=== PATIENT | female | born 1965 | race Caucasian/White ===

== ENCOUNTER 2023-04-13 17:42 | Emergency (ER) | payer MEDICARE, MEDICAID, SELFPAY ==
[2023-04-13 18:39] VITALS: BP 125/64; PULSE 62; RESP 18; TEMP 36.3; O2SAT 99; BMI 26.6
--- NOTE | 2023-04-13 18:39 | ED_ITS ---
HPI - General Adult General Chief complaint: Dizziness Stated complaint: Dizziness/Nauseas Related Data Allergies Allergy/AdvReac Type Severity Reaction Status Date / Time No Known Allergies Allergy Unverified 04/11/20 15:10 [No Known Allergies*] FORMERLY [facility], [facility] Social History Social History Advance Directives: No Advance Directives Information Provided: No Physical Exam ED Vital Signs: BMI result Body Mass Index 26.6 Course Course Course Narrative: This is an RME: Additional HPI, ROS, PE not included below will be deferred to primary provider. This is a 57-year-old female, with a hx of right lower lobectomy (noncancerous), presenting to the emergency department for evaluation of dizziness with bending over. Two nights ago she was rolling around in bed and felt dizziness. Dizziness over the last 2 days she has been dizzy with nausea. Plan: Labs, EKG Reevaluation(s) Reevaluation #1: Patient eloped prior to being seen by primary provider. Medical Decision Making Lab Data 04/13/23 19:20 04/13/23 19:20 Labs: Lab Results 04/13/23 Range/Units 19:20 WBC 9.0 (4.8-10.8) X10*3/uL RBC 4.22 (4.20-5.50) X10*6/uL Hgb 13.4 (12.0-16.0) g/dl Hct 39.3 (37.0-47.0) % MCV 93.1 (80.0-98.0) fL MCH 31.8 (27.0-33.0) pg MCHC 34.1 (31.0-35.0) g/dl RDW 11.8 (11.0-16.0) % Plt Count 241 (160-400) X10*3/uL MPV 10.1 (9.4-12.3) fL Immature Gran % (Auto) 0.9 H (0.0-0.4) % Neut % (Auto) 56.0 (45-73) % Lymph % (Auto) 31.7 (20-40) % [place] % (Auto) 8.9 (2-11) % Eos % (Auto) 1.9 (0-4) % Baso % (Auto) 0.6 (0-2) % Lymph # (Auto) 2.8 (1.2-4.9) X10*3/uL [place] # (Auto) 0.8 (0.1-1.2) X10*3/uL Eos # (Auto) 0.2 (0.0-0.4) X10*3/uL Baso # (Auto) 0.1 (0.0-0.2) X10*3/uL Abs Immat Gran (auto) 0.08 H (0.00-0.03) X10*3/uL Absolute Neuts (auto) 5.0 (2.0-8.3) x10*3/uL Absolute Nucleated RBC 0.000 (0.0-0.012) X10*3/uL Nucleated RBC % (auto) 0.0 (0.0-0.2) /100WBC Sodium 141 (135-145) mmol/L Potassium 4.5 (3.3-5.1) mmol/L Chloride 105 (96-108) mmol/L Carbon Dioxide 27 (22-29) mmol/L Anion Gap 14 (12-20) BUN 17 H (9-16) mg/dL Creatinine 0.77 (0.5-1.4) mg/dL Estim Creat Clear Calc 75.6 Estimated GFR > 60 Random Glucose 89 (60-115) mg/dL Calcium 9.6 (8.4-10.2) mg/dL Total Bilirubin 0.5 (0.0-1.0) mg/dL Direct Bilirubin 0.2 (0.0-0.5) mg/dL AST 24 (5-31) U/L ALT 17 (0-31) U/L Alkaline Phosphatase 63 (39-117) U/L Troponin I High Sens < 2.7 (<3.5-17.0) ng/L Total Protein 7.2 (6.5-8.0) g/dL Albumin 4.4 (3.5-5.0) g/dL Discharge Plan Discharge Clinical Impression: Dizziness Patient Disposition: Elopement Discharge Date/Time: 04/14/23 00:31
--- NOTE | 2023-04-13 18:41 | ECG_ITS ---
Test Reason : dizziness Blood Pressure : / mmHG Vent. Rate : 060 BPM Atrial Rate : 060 BPM P-R Int : 184 ms QRS Dur : 086 ms QT Int : 424 ms P-R-T Axes : 051 007 018 degrees QTc Int : 424 ms Normal sinus rhythm Low voltage QRS Borderline ECG When compared with ECG of 10-AUG-2017 08:56, No significant change was found Referred By: Fang Diaz Electronically Signed By:HENNA ELAM
[2023-04-13 19:24] LABS: MANUAL DIFF FLAG NO
[2023-04-13 19:39] LABS: Basophils Absolute Auto 0.1 X10*3/uL (0.0-0.2); Basophils Percent Auto 0.6 % (0-2); Eosinophils Absolute Auto 0.2 X10*3/uL (0.0-0.4); Eosinophils Percent Auto 1.9 % (0-4); Hematocrit 39.3 % (37.0-47.0); Hemoglobin 13.4 g/dl (12.0-16.0); Imm Gran Abs Auto 0.08 X10*3/uL (0.00-0.03); Imm Gran Pct Auto 0.9 % (0.0-0.4); Lymphocytes Absolute Auto 2.8 X10*3/uL (1.2-4.9); Lymphocytes Percent Auto 31.7 % (20-40); Mean Corpuscular HGB Conc 34.1 g/dl (31.0-35.0); Mean Corpuscular Hemoglobin 31.8 pg (27.0-33.0); Mean Corpuscular Volume 93.1 fL (80.0-98.0); Mean Platelet Volume 10.1 fL (9.4-12.3); Monocytes Absolute Auto 0.8 X10*3/uL (0.1-1.2); Monocytes Percent Auto 8.9 % (2-11); Platelet Count 241 X10*3/uL (160-400); Red Blood Count 4.22 X10*6/uL (4.20-5.50); Red Cell Distribution Width 11.8 % (11.0-16.0)
[2023-04-13 19:43] LABS: Alanine Aminotransferase 17 U/L (0-31); Albumin Level 4.4 g/dL (3.5-5.0); Alkaline Phosphatase 63 U/L (39-117); Anion Gap 14 (12-20); Aspartate Amino Transferase 24 U/L (5-31); Bilirubin Direct 0.2 mg/dL (0.0-0.5); Bilirubin Total 0.5 mg/dL (0.0-1.0); Blood Urea Nitrogen 17 mg/dL (9-16); Calcium 9.6 mg/dL (8.4-10.2); Carbon Dioxide 27 mmol/L (22-29); Chloride 105 mmol/L (96-108); Creatinine Clr Calc Pharmacy 75.6; Estimated Glomerular Filt Rate > 60; Glucose Random 89 mg/dL (60-115); Potassium 4.5 mmol/L (3.3-5.1); Sodium 141 mmol/L (135-145); Total Protein 7.2 g/dL (6.5-8.0)
[2023-04-13 19:50] LABS: Troponin-I High Sensitivity < 2.7 ng/L (<3.5-17.0)
== END 2023-04-14 00:31 | disposition left against medical advice (07) ==
LOC: HO.ED 04-14 00:15
PROVIDERS: Physician Assistant Medical; Emergency Provider Emergency Medicine; PCP Internal Medicine
DX: R42 Dizziness and giddiness (principal); R94.31 Abnormal electrocardiogram [ECG] [EKG]; R11.2 Nausea with vomiting, unspecified; Z79.899 Other long term (current) drug therapy
CPT/HCPCS: 36415; 80048; 80076; 84484; 85025; 93005; 99283

== ENCOUNTER 2025-02-04 10:42 | Emergency (ER) | payer MEDICARE, MEDICAID, SELFPAY ==
--- NOTE | ~2025-02-04 | CT_ITS ---
CLINICAL HISTORY: pleuritic CP, SOB CT angiography chest with contrast. 3D Postprocessing. Comparison: CT - CT ANGIO CHEST PE PROTOCOL - 02/04/25 13:30 EDT Findings: The heart is normal size. RV/LV ratio is normal. Unremarkable thoracic aorta and great vessels. No aneurysm. No pulmonary artery filling defects. The visualized thyroid and mediastinum are unremarkable. No evidence of pneumonia or edema. Scarring within the superior segment right lower lobe. Subpleural nodule within the right middle lobe anteriorly measuring 5 mm (image 89). Scarring within the right lung base posteriorly. Spiculated 6 mm nodule within the left lower lobe anteriorly (image 86). The visualized upper abdomen is unremarkable. The bones are intact. IMPRESSION: 1. No pulmonary emboli. 2. Bilateral pulmonary nodules. Optional follow-up chest CT at 6-12 months, then at 18-24 months could be performed for further assessment. This document has been electronically signed by: Axel Garnica MD on 02/04/2025 14:41:12
--- NOTE | ~2025-02-04 | CT_ITS ---
CLINICAL HISTORY: abd pain, diffusely tender, hx of IBS CT abdomen and pelvis with contrast Comparison: None provided Findings: The lung bases are clear. The gallbladder and solid organs are within normal limits. No renal stones. No bowel obstruction, pneumoperitoneum, or pneumatosis. Pelvic contents unremarkable. Appendix is not seen. No acute fracture. IMPRESSION: No acute findings. This document has been electronically signed by: Axel Garnica MD on 02/04/2025 14:39:02
[2025-02-04 10:49] VITALS: BP 118/69; PULSE 64; RESP 20; TEMP 36.2; O2SAT 99; BMI 27.4
[2025-02-04 11:56] LABS: MANUAL DIFF FLAG NO
[2025-02-04 11:57] LABS: Hematocrit 40.4 % (37.0-47.0); Hemoglobin 14.3 g/dl (12.0-16.0); Imm Gran Abs Auto 0.02 X10*3/uL (0.00-0.03); Imm Gran Pct Auto 0.2 % (0.0-0.4); Lymphocytes Absolute Auto 2.2 X10*3/uL (1.2-4.9); Mean Corpuscular HGB Conc 35.4 g/dl (31.0-35.0); Mean Corpuscular Hemoglobin 31.7 pg (27.0-33.0); Mean Corpuscular Volume 89.6 fL (80.0-98.0); NRBC Abs Auto 0.000 X10*3/uL (0.0-0.012); NRBC Pct Auto 0.0 /100WBC (0.0-0.2); Platelet Count 224 X10*3/uL (160-400); Red Blood Count 4.51 X10*6/uL (4.20-5.50); White Blood Count 8.4 X10*3/uL (4.8-10.8)
[2025-02-04 12:01] LABS: Appearance Urine Clear; Glucose Urine UA Negative (Negative); PH 5.5 (5.0-9.0); Specific Gravity - Urine 1.025 (1.005-1.025)
--- NOTE | 2025-02-04 12:08 | ED_ITS ---
HPI - General Adult General Chief complaint: Abdominal Pain Stated complaint: abd pain Time Seen by Provider: 02/04/25 12:34 Source: patient and RN notes reviewed Mode of arrival: ambulatory Limitations: no limitations History of Present Illness ED Provider: Fang Garcia PA-C HPI narrative: This is a 59-year-old female, with a hx of Linezess for IBS-C, treated hepatitis-C, and partial right lower lobectomy due to concerns for cancerous lesion however this was found to be benign, who presents emergency department for evaluation of abdominal pain. Patient reports that over the last 6 months she has had worsening abdominal pain, states that it is worsening over the last several days. She also admits that she has had a rate submitted pleuritic pain. She states that she treat following up with her GI specialist however given that she has been seen in over 2 years, they need to have a new patient appointment in her GI specialist also left. She states that she has had no fevers, chills, chest pain. She does report nausea when she takes Linzess with docusate. She states that she will have episodes of diarrhea where she would lose 5-7lbs in a night. She reports that this pleuritic right sided rib pain does take her breath away. She denies any recent travel, surgery, or hospitalizations. No history of blood clots. She states she has a history of IVDA, states that has been many years. No other complaints or concerns at this time. MD complaint: Abdominal Pain Onset (ago): day(s) Relieving factors: none Exacerbating factors: none Associated symptoms: denies other symptoms Treatments prior to arrival: none Related Data Allergies Allergy/AdvReac Type Severity Reaction Status Date / Time No Known Allergies (No Known Allergy Verified 02/04/25 10:52 Allergies*) Review of Systems 2 Review of Systems: Yes all other systems are reviewed and are negative Constitutional: Constitutional: Reports as per HPI Physical Exam ED Vital Signs: Vital Signs - 24 hr 02/04/25 10:49 02/04/25 12:36 02/04/25 15:14 Temperature 97.1 F 97.3 F 97.6 F Pulse Rate 64 58 81 Respiratory Rate 20 16 16 Blood Pressure 118/69 125/73 126/64 Pulse Oximetry 99 97 95 Oxygen Delivery Method Room Air Room Air Room Air BMI result Body Mass Index 27.4 Const General: cooperative, comfortable and no acute distress Orientation/consciousness: patient oriented x3 Limitations: no limitations HENMT Head: Yes normal to inspection, Yes normocephalic and Yes atraumatic Ears: hearing grossly normal bilaterally General nose exam: Normal external nose present Face and sinus: Yes normal facial exam Mouth: Normal oral and palatal mucosa present, oropharynx normal and moist mucous membranes Throat: Yes posterior oropharynx normal Eyes General: appearance normal, both eyes and all related structures Eyelids: Yes eyelids normal Conjunctivae: conjunctivae normal Sclerae: sclerae normal Pupils: Equal, round and reactive pupils present EOM: EOMs intact bilaterally Neck Neck: Yes normal visual inspection, Yes full ROM and Yes no lymphadenopathy Lymphatic: no lymphadenopathy noted Chest Chest palpation & inspection: normal inspection of the chest Resp Effort & Inspection: normal respiratory effort and able to speak in complete sentences Auscultation: clear to auscultation bilaterally, no crackles, no rales, no rhonchi and no wheezes Cardio Rate: regular rate Rhythm: regular rhythm Heart sounds: S1 normal heart sound present and S2 normal heart sound present GI Inspection: Yes normal to inspection Skin General skin exam: no rashes or lesions noted Trauma: no lacerations or abrasions Wounds: no wounds Neuro General: patient oriented x3 and moves all extremities Cranial nerves: Yes Equal, round and reactive pupils present Extrem General: Yes normal to inspection Right upper extremity: normal to inspection Left upper extremity: normal to inspection Right lower extremity: normal to inspection Left lower extremity: normal to inspection Course Course Course Narrative: Medical screening exam performed. Please refer to detailed history, exam, evaluation, and management by primary provider. 59-year-old female with abdominal pain, history of IBS. Hemodynamically stable. Medications Administered Discontinued Medications Generic Name Dose Route Start Last Admin Trade Name Freq PRN Reason Stop Dose Admin Sodium Chloride 1,000 mls @ 999 mls/hr 02/04/25 13:05 02/04/25 14:02 Ns IV 02/04/25 14:05 Infused .Q1H1M ONE Infusion Iohexol 100 ml 02/04/25 13:38 02/04/25 13:39 Iohexol 350 Mg/Ml 100 Ml Infus..Btl IV 02/04/25 13:39 85 ml ONCE ONE Administration Ketorolac Tromethamine 15 mg 02/04/25 12:59 02/04/25 13:06 Ketorolac Tromethamine 15 Mg/Ml Vial IVPUSH 02/04/25 13:00 15 mg ONCE ONE Administration Medical Decision Making Medical Decision Making [facility] Narrative: This is a 59-year-old female, with a history of IBS-C on Linzess, who presents emergency department for concerns of abdominal pain, and pleuritic chest pain. On arrival, patient is well-appearing, appears to be under no acute distress, vital signs within normal limits. Abdomen is soft with diffuse tenderness throughout. She also does have tenderness palpation along the right lateral ribs, worsening with inspiration. Differential diagnoses include acute diverticulitis, diverticulosis, cellulitis, IBS. Labs were obtained prior to my evaluation, she has no leukocytosis, stable H&H, chemistry revealing slight elevation in BUN, AST and ALT slightly elevated at 49 and 72, urine does not appear to be infected. Will medicate patient with IV fluids and Toradol, will also obtain CTA and CT abdomen and pelvis to rule out any acute pathology. We will continue to closely monitor. Course: CT abdomen and pelvis revealed no acute findings. CTA of the chest does reveal bilateral pulmonary nodules, I discussed this with patient. Urged the importance of following up with GI specialty, she understands and agrees with this plan. Given strict return precautions. Patient stable for discharge. Differential Diagnosis Differential Diagnoses: The differential diagnosis associated with the presentation includes see above Admission/Observation Consideration of admission/observation: Escalation of care including admission/observation considered Lab Data [facility] Lab Attestation statement: I reviewed the patient's lab results. see [facility] 02/04/25 11:52 02/04/25 11:52 Labs: Lab Results 02/04/25 Range/Units 11:52 WBC 8.4 (4.8-10.8) X10*3/uL RBC 4.51 (4.20-5.50) X10*6/uL Hgb 14.3 (12.0-16.0) g/dl Hct 40.4 (37.0-47.0) % MCV 89.6 (80.0-98.0) fL MCH 31.7 (27.0-33.0) pg MCHC 35.4 H (31.0-35.0) g/dl RDW 11.9 (11.0-16.0) % Plt Count 224 (160-400) X10*3/uL MPV 9.4 (9.4-12.3) fL Immature Gran % (Auto) 0.2 (0.0-0.4) % Neut % (Auto) 63.3 (45-73) % Lymph % (Auto) 26.1 (20-40) % [place] % (Auto) 8.7 (2-11) % Eos % (Auto) 1.3 (0-4) % Baso % (Auto) 0.4 (0-2) % Lymph # (Auto) 2.2 (1.2-4.9) X10*3/uL [place] # (Auto) 0.7 (0.1-1.2) X10*3/uL Eos # (Auto) 0.1 (0.0-0.4) X10*3/uL Baso # (Auto) 0.0 (0.0-0.2) X10*3/uL Abs Immat Gran (auto) 0.02 (0.00-0.03) X10*3/uL Absolute Neuts (auto) 5.3 (2.0-8.3) x10*3/uL Absolute Nucleated RBC 0.000 (0.0-0.012) X10*3/uL Nucleated RBC % (auto) 0.0 (0.0-0.2) /100WBC Sodium 142 (135-145) mmol/L Potassium 4.8 (3.3-5.1) mmol/L Chloride 106 (96-108) mmol/L Carbon Dioxide 28 (22-29) mmol/L Anion Gap 13 (12-20) BUN 19 H (9-16) mg/dL Creatinine 0.69 (0.5-1.4) mg/dL Estim Creat Clear Calc 83.4 Estimated GFR > 60 Random Glucose 95 (60-115) mg/dL Calcium 9.4 (8.4-10.2) mg/dL Total Bilirubin 1.0 (0.0-1.0) mg/dL Direct Bilirubin 0.4 (0.0-0.5) mg/dL AST 49 H (5-31) U/L ALT 72 H (0-31) U/L Alkaline Phosphatase 73 (39-117) U/L Total Protein 7.1 (6.5-8.0) g/dL Albumin 4.8 (3.5-5.0) g/dL Lipase 32 (8-78) U/L Urine Color Dark Yellow Urine Appearance Clear Urine pH 5.5 (5.0-9.0) Ur Specific [place] 1.025 (1.005-1.025) Urine Protein Negative (Neg-Trace) mg/dL Urine Glucose (UA) Negative (Negative) mg/dL Urine Ketones Trace (Negative) mg/dL Urine Blood Negative (Negative) Urine Nitrite Negative (Negative) Ur Leukocyte Esterase Negative (Negative) Radiology Impression Discussion of test interpretation with radiology: I have reviewed the radiologist's reading. Radiologist Impression: Findings: The heart is normal size. RV/LV ratio is normal. Unremarkable thoracic aorta and great vessels. No aneurysm. No pulmonary artery filling defects. The visualized thyroid and mediastinum are unremarkable. No evidence of pneumonia or edema. Scarring within the superior segment right lower lobe. Subpleural nodule within the right middle lobe anteriorly measuring 5 mm (image 89). Scarring within the right lung base posteriorly. Spiculated 6 mm nodule within the left lower lobe anteriorly (image 86). The visualized upper abdomen is unremarkable. The bones are intact. IMPRESSION: 1. No pulmonary emboli. 2. Bilateral pulmonary nodules. Optional follow-up chest CT at 6-12 months, then at 18-24 months could be performed for further assessment. This document has been electronically signed by: Axel Garnica MD on 02/04/2025 14:41:12 Dictated By: Axel Garnica MD CT abdomen and pelvis with contrast Comparison: None provided Findings: The lung bases are clear. The gallbladder and solid organs are within normal limits. No renal stones. No bowel obstruction, pneumoperitoneum, or pneumatosis. Pelvic contents unremarkable. Appendix is not seen. No acute fracture. IMPRESSION: No acute findings. This document has been electronically signed by: Axel Garnica MD on 02/04/2025 14:39:02 Dictated By: Axel Garnica MD Independent Historian Clinical information obtained from an independent historian. History obtained from or confirmed by: Spouse Discharge Plan Discharge Clinical Impression: Abdominal pain, Abnormal chest CT Patient Disposition: Home, Self-Care Instructions: Abdominal Pain (ED) Additional Instructions: You were seen in the emergency department due to abdominal pain. Your overall workup today was reassuring. Your blood work shows slight elevation in your AST and ALT. Your CT scan of your chest does show lung nodules, recommending 6-12 month follow-up. You need to follow-up with your GI specialist, call on Wednesday to make an appointment. You may also follow-up with our GI specialist here. Drink plenty of fluids get plenty of rest. If any new or worsening symptoms occur including but not limited to worsening pain, severe chest pain, shortness of breath, please seek emergent care. Referrals: [facility] [place] Gastroenterology Services [Provider Group, Gastroenterology] Interventions: ED Discharge Assessment Last Done: 02/04/25 15:14 Discharge Date/Time: 02/04/25 15:14 Print Language: French
[2025-02-04 12:10] LABS: Alanine Aminotransferase 72 U/L (0-31); Albumin Level 4.8 g/dL (3.5-5.0); Alkaline Phosphatase 73 U/L (39-117); Anion Gap 13 (12-20); Aspartate Amino Transferase 49 U/L (5-31); Blood Urea Nitrogen 19 mg/dL (9-16); Calcium 9.4 mg/dL (8.4-10.2); Carbon Dioxide 28 mmol/L (22-29); Chloride 106 mmol/L (96-108); Creatinine Clr Calc Pharmacy 83.4; Estimated Glomerular Filt Rate > 60; Lipase 32 U/L (8-78); Potassium 4.8 mmol/L (3.3-5.1); Sodium 142 mmol/L (135-145); Total Protein 7.1 g/dL (6.5-8.0)
[2025-02-04 12:36] VITALS: BP 125/73; PULSE 58; RESP 16; TEMP 36.3; O2SAT 97
--- OUTSIDE RECORDS SUMMARY | 2025-02-04 13:00 | XMS_ITS | Clinical Summary ---
Author Organization [facility] Address [address] [place] [address] Care Team Providers Care Animal Caretaker Name Role Phone Danna Mendoza MD Primary Care Prov ider Allergies No known active allergies Medications Medication Sig Dispensed Refills Start Date End Date Status Linzess 145 MCG CAPS Take 1 capsule (145 mcg total) by mouth daily. 0 06/17/2022 Active LORazepam (ATIVAN) 1 MG tablet TAKE 1 TABLET EVERY MORNING AND THEN 1 DAILY NEEDED FOR ANXIETY 0 06/25/2022 Active omeprazole (PriLOSEC) 20 MG capsule 0 07/06/2022 Active Senna-Time 8.6 MG tablet TAKE 2 TABLETS BY MOUTH AT BEDTIME 0 06/04/2022 Active valACYclovir (VALTREX) 500 MG tablet Take 1 tablet (500 mg total) by mouth daily. 0 12/01/2021 Active MELOXICAM PO Take by mouth. 0 Active Active Problems No known active problems Social History Tobacco Use Types Packs/Day Years Used Date Smoking Tobacco: Former Cigarettes Q uit: 04/25/2022 Smokeless Tobacco: Former Tobacco Cessation:Counseling Given: Not Answered Alcohol Use Standard Drinks/Week Comments Yes 0 (1 standard drink = 0.6 oz pur e alcohol) only on occasion Sex and Gender Information Value Date Recorded Sex Assigned at Not on file Gender Identity Not on file Sexual Orientation Not on file Job Start Date Occupation Industry Not on file Not on file Not on file Last Filed Vital Signs Vital Sign Reading Time Taken Comments Blood Pressure 113/61 11/04/2023 8:59 AM EDT Pulse 60 11/04/2023 8:59 AM EDT Temperature 36.5 C (97.7 F) 11/04/2023 8:59 AM EDT Respiratory Rate - - Oxygen Saturation 98% 11/04/2023 8:59 AM EDT Inhaled Oxygen Concentration - - Weight 70.8 kg (156 lb) 11/04/2023 8:59 AM EDT Height 160 cm (5' 3 ) 11/04/2022 11:38 AM EDT Body Mass Index 27.63 11/04/2022 11:38 AM EDT Plan of Treatment Health Maintenance Due Date Last Done Comments Hepatitis C Screening 1965 Depression Screening 1975 Preventative Health Evaluation 09/24/1981 Cervical Cancer Screening (Pap Smear) 09/24/1984 Colon Cancer Screening (Colonoscopy) 09/24/2008 Breast Cancer Screening (Mammogram) 09/24/2013 Shingrix-Zoster Vaccine (2 of 2) 04/20/2018 02/23/2018 COVID-19 Vaccine ( season) 2024 10/26/2020, 10/05/2020 Influenza Vaccine (#1) 2025 9, 05/11/2018, 09/30/2015, Additional history exists DTap / Tdap / Td (3 - Td or Tdap) 02/10/2033 02/10/2023, 12/06/2007, 10/06/2006 RSV Adult > 60+ Yrs or (1 - 1-dose 75+ series) 09/24/2038 Pneumococcal Vaccine Aged Out 08/18/2006 No long er eligible based on patient's age to complete this topic Hepatitis B Vaccines Completed 05/21/2008, 12/20/2007, 11/15/2007 RSV Ped < 20 months Aged Out No longe r eligible based on patient's age to complete this topic Care Teams Animal Caretaker Relationship Specialty Start Date End Date Danna Mendoza MD [address], [place] [id number] PCP - General Internal Medicine 07/06/22
[2025-02-04] MEDS: iohexoL 350 MG/ML 100 ML INFUS..BTL IV (13:39)
[2025-02-04 15:14] VITALS: BP 126/64; PULSE 81; RESP 16; TEMP 36.4; O2SAT 95
== END 2025-02-04 15:14 | disposition home or self-care (01) ==
PROVIDERS: Emergency Provider Emergency Medicine; PCP Internal Medicine
DX: R10.2 Pelvic and perineal pain (principal); R07.81 Pleurodynia; R11.0 Nausea; R93.1 Abnormal findings on diagnostic imaging of heart and coronary circulation; Z79.899 Other long term (current) drug therapy
CPT/HCPCS: 36415; 71275; 74177; 80048; 80076; 81003; 83690; 85025; 96361; 96374; 99284; 99285; J1885; Q9967

== ENCOUNTER → 2025-02-04 12:59 | Outpatient (BNV) | payer MEDICARE, MEDICAID, SELFPAY | PROVIDERS: Emergency Provider Emergency Medicine; PCP Internal Medicine; Visit Provider Radiology Diagnostic Radiology | DX: R10.817 Generalized abdominal tenderness (principal); R10.9 Unspecified abdominal pain; R91.8 Other nonspecific abnormal finding of lung field; Z87.19 Personal history of other diseases of the digestive system | CPT/HCPCS: 71275; 74177 ==